=== PATIENT | male | born 1995 ===

== ENCOUNTER 2022-04-18 08:01 | Emergency (ER) | payer SELFPAY ==
[2022-04-18 08:11] VITALS: BP 132/80; PULSE 98; RESP 16; TEMP 36.3; O2SAT 100
--- NOTE | 2022-04-18 08:15 | ECG_ITS ---
Measurements Intervals [place] Rate: 85 P: 57 AL: 148 QRS: 35 QRSD: 88 T: 34 QT: 334 QTc: 398 Interpretive Statements SINUS RHYTHM NORMAL ECG NO PREVIOUS ECG AVAILABLE FOR COMPARISON Electronically Signed On 04-18-2022 15:17:17 [employer] SUPERVIS[employer] by Chas Chris D.O.
[2022-04-18 08:44] LABS: Alanine Aminotransferase 88 U/L (6-50); Albumin Level 4.8 g/dL (3.5-5.1); Alkaline Phosphatase 100 U/L (38-126); Anion Gap 8 mmol/L (8-16); Aspartate Amino Transferase 69 U/L (17-59); Bilirubin,Total 0.4 mg/dL (0.2-1.3); Blood Urea Nitrogen 10 mg/dL (9-20); Calcium 8.5 mg/dL (8.4-10.2); Carbon Dioxide 29 mmol/L (22-30); Chloride 102 mmol/L (98-107); Estimated Glomerular Filt Rate > 60; Glucose 99 mg/dL (65-110); Lipase 442 U/L (23-300); Sodium 139 mmol/L (137-145)
[2022-04-18 08:55] LABS: Basophils Percent Auto 0.7 % (0.2-1.2); Eosinophils Percent Auto 0.7 % (0-4.4); Hematocrit 41.7 % (42.0-52.0); Hemoglobin 14.9 g/dL (14.0-18.0); Immature Granulocyte Absolute 0.03 K/mm3 (0.00-0.031); Immature Granulocyte Percent A 0.6 % (0-0.5); Lymphocytes Absolute Auto 2.38 K/mm3 (0.9-3.2); Mean Corpuscular HGB Conc 35.7 g/dl (32-36); Mean Corpuscular Hemoglobin 30.7 pg (26-34); Mean Corpuscular Volume 85.8 fl (80-100); Mean Platelet Volume 10.8 fl (7.4-10.4); Monocytes Absolute Auto 0.6 K/mm3 (0.1-0.6); Monocytes Percent Auto 11.6 % (2.6-8.5); Neutrophils Absolute Auto 2.3 K/mm3 (1.3-6.7); Neutrophils Percent Auto 42.4 % (45.5-73.1); Platelet Count Result 258 k/mm3 (150-375); Red Blood Count 4.86 M/mm3 (4.6-6.20); Red Cell Distribution Width 12.7 % (11.5-14.5); White Blood Count 5.4 K/mm3 (4.5-10.0)
[2022-04-18 08:56] LABS: Troponin I < 0.012 ng/mL (0.000-0.034)
--- NOTE | 2022-04-18 09:33 | PC.NURSE ---
wALK OUT AT 0930.
== END 2022-04-18 09:30 | disposition left against medical advice (07) ==
LOC: ANHED 14:20
PROVIDERS: Emergency Provider Emergency Medicine
DX: R10.9 Unspecified abdominal pain (principal)
CPT/HCPCS: 36415; 80053; 83690; 84484; 85025; 93005; 99199